=== PATIENT | female | born 2000 | race Two or more races ===

== ENCOUNTER 2022-10-17 14:01 | Outpatient (CLI) | payer OTHER ==
--- NOTE | 2022-10-17 20:50 | Ultrasound Report ---
PROCEDURE: OB F/U or Repeat INDICATIONS: UTERINE SIZE-DATE DISCREPANCY, DM OUTSIDE/PRIOR DATING DATA: Last menstrual period (LMP): 02/12/2022. LMP-based estimated date of delivery (JAMIL): Not calculated. First dating scan (date and location): 04/13/2022. Estimated date of delivery (JAMIL) from first dating scan: 11/19/2022. TECHNIQUE: Real-time scanning was performed of the fetus, with image documentation and biometric measurements. Endovaginal scanning: Not performed COMPARISON: None. FINDINGS: General: A single living intrauterine gestation is present. Presentation: Vertex Placenta: Placental position is anterior, without previa. Amniotic fluid index: 11.6 cm, 12% for gestational age. heart rate: 153 beats per minute. Maternal cervical canal: 4.6 cm long; normal length is 2.5 cm or more. biometrics: Biparietal diameter: 8.7 cm, 35 weeks and 2 days Head circumference: 31.9 cm, 35 weeks and 6 days Abdominal circumference: 33.7 cm, 37 weeks and 4 days Femur length: 6.7 cm, 34 weeks and 4 days Estimated gestational age from initial scan: 35 weeks and 2 days Composite gestational age from present scan: 35 weeks and 6 days Estimated weight and percentile: 2934 g which correlates with the 79th percentile Measurement variability in biometric dating: +/- 10 days from 12-20 weeks gestation, +/- 2 weeks from 20-30 weeks gestation, +/- 3 weeks at 30 weeks gestation or more. Other: Not applicable. IMPRESSION: Single living intrauterine gestation with estimated sonographic gestational age of appro ximately 35 weeks and 6 days. Normal interval growth has occurred. Estimated weight of approxim ately 2934 g which [address] the fetus within the 79th percentile. Reviewed by: Jose Azevedo MD on 10/17/2022 8:49 PM PDT Approved by: Jose Azevedo MD on 10/17/2022 8:49 PM PDT Station ID: [id number]
== END 2022-10-17 14:02 | disposition home or self-care (01) ==
LOC: DI 14:01
PROVIDERS: ATTEND Nurse Practitioner
DX: O24.913 Unspecified diabetes mellitus in pregnancy, third trimester (principal); O26.843 Uterine size-date discrepancy, third trimester; Z3A.35 35 weeks gestation of pregnancy

== ENCOUNTER 2022-10-17 19:15 | Outpatient (CLI) | payer OTHER ==
--- NOTE | 2022-10-17 17:35 | Ultrasound Report ---
PROCEDURE: OB Biophysical Profile INDICATIONS: INSULIN DEPENDENT DM OUTSIDE/PRIOR DATING DATA: Last menstrual period (LMP): 02/12/2022. LMP-based estimated date of delivery (JAMIL): Not calculated. First dating scan (date and location): 04/13/2022. Estimated date of delivery (JAMIL) from first dating scan: 11/19/2022. TECHNIQUE: Real-time scanning was performed of the fetus, with image documentation and biometric stephanie surements. Biophysical profile was also obtained. Endovaginal scanning: Not performed COMPARISON: None. FINDINGS: General: A single living intrauterine gestation is present. Presentation: Vertex Placenta: Placental position is anterior, without previa. Amniotic fluid index: 9.6 cm, 12th percentile for gestational age. heart rate: 153 beats per minute. Maternal cervical canal: 4.6 cm long; normal length is 2.5 cm or more. biometrics: Biparietal diameter: 8.7 cm, 35 weeks and 2 days Head circumference: 31.9 cm, 35 weeks and 6 days Abdominal circumference: 33.7 cm, 37 weeks and 4 days Femur length: 6.7 cm, 34 weeks and 4 days Estimated gestational age from initial scan: 35 weeks and 2 days. Composite gestational age from present scan: 35 weeks and 6 days Estimated weight and percentile: 2934 g, approximately the 79th percentile for gestational age Measurement variability in biometric dating: +/- 10 days from 12-20 weeks gestation, +/- 2 weeks from 20-30 weeks gestation, +/- 3 weeks at 30 weeks gestation or later. Biophysical profile: Tone: 2 points. Movement: 2 points. Respiration: 2 points. Largest pocket of fluid: 2 points. Umbilical artery Doppler: Cord Doppler S/D ratios measure 2.3 at the abdominal insertion, 1.84 at mi d cord, and 2.61 at the placental insertion. Normal cord Doppler waveforms. IMPRESSION: Single living intrauterine gestation with estimated sonographic gestational age of approximately 35 w eeks and 6 days. Normal interval growth has occurred. Estimated weight measures approximately 2 934 g which correlates with the 79th percentile for gestational age. Biophysical profile score of 8 out of 8. Normal cord Doppler S/D ratios and Doppler waveforms. Reviewed by: Jose Jang MD on 10/17/2022 5:34 PM PDT Approved by: Jose Jang MD on 10/17/2022 5:34 PM PDT Station ID: [id number]
== END 2022-10-17 23:59 | disposition home or self-care (01) ==
LOC: DI 19:15
PROVIDERS: ATTEND Nurse Practitioner
DX: O24.410 Gestational diabetes mellitus in pregnancy, diet controlled (principal); O26.843 Uterine size-date discrepancy, third trimester; Z3A.35 35 weeks gestation of pregnancy

== ENCOUNTER 2022-10-19 08:00 | Outpatient (CLI) | payer OTHER | END 2022-10-19 23:59 | disposition home or self-care (01) | LOC: LAB.R 08:00 | PROVIDERS: ATTEND Obstetrics & Gynecology | DX: Z36.85 Encounter for antenatal screening for Streptococcus B (principal) | CPT/HCPCS: 87797 ==

== ENCOUNTER 2022-10-19 08:09 | Outpatient (CLI) | payer OTHER ==
[2022-10-19 08:35] VITALS: BP 118/79
--- NOTE | 2022-10-19 10:00 | PROCEDURE REPORT ---
- HPI Current EDU 11/16/22 Gestation 36 Weeks and 0 Days 2 Para 0 Vital Signs Temperature 98.1 F 10/19/22 08:20 Heart Rate 84 10/19/22 08:20 Respiratory Rate 14 10/19/22 08:20 Blood Pressure 118/79 10/19/22 08:20 Temperature 98.1 F 10/19/22 08:20 Heart Rate 84 10/19/22 08:20 Respiratory Rate 14 10/19/22 08:20 Blood Pressure 118/79 10/19/22 08:20 O2 Saturation If not protocol: Oxygen Flow, liters/minute - NST Procedure NST Procedure Start Date 10/19/22 Start Time 08:43 Patient States Movement Yes - Results and Plan Plan: Patient is a 22-year-old G2, P0 at 36 weeks gestation here for scheduled NST. NST Performed 10/19/2022 NST Read 10/19/2022 FHT: 135 bpm baseline, moderate variability, accelerations present, no decelerations. Reactive NST [place]: Irregular Diagnosis 36 weeks gestation Gestational diabetes Continue with twice weekly NST.
== END 2022-10-19 09:15 | disposition home or self-care (01) ==
LOC: WFO 08:09 → FBP 08:13 → WFO 09:15
PROVIDERS: ATTEND Obstetrics & Gynecology
DX: O24.414 Gestational diabetes mellitus in pregnancy, insulin controlled (principal); Z36.85 Encounter for antenatal screening for Streptococcus B; Z3A.36 36 weeks gestation of pregnancy
CPT/HCPCS: 59025; 87797

== ENCOUNTER 2022-10-23 17:34 | Outpatient (CLI) | payer OTHER ==
--- NOTE | 2022-10-24 10:18 | Ultrasound Report ---
PROCEDURE: OB Biophysical Profile INDICATIONS: INSULIN DEPENDENT DM OUTSIDE/PRIOR DATING DATA: Last menstrual period (LMP): 02/12/2022. LMP-based estimated date of delivery (JAMIL): Not applicable First dating scan (date and location): 04/13/2022. Estimated date of delivery (JAMIL) from first dating scan: 11/19/2022. TECHNIQUE: Real-time scanning was performed of the fetus, with image documentation and biometric stephanie surements. Biophysical profile was also obtained. Endovaginal scanning: No COMPARISON: 10/17/2022 FINDINGS: General: A single living intrauterine gestation is present. Presentation: Cephalic Placenta: Placental position is anterior, without previa. Amniotic fluid index: 13.6 cm, within normal limits for gestational age. heart rate: 147 beats per minute. Maternal cervical canal: Not imaged Estimated gestational age from initial scan: 36 weeks 1 day Measurement variability in biometric dating: +/- 10 days from 12-20 weeks gestation, +/- 2 weeks from 20-30 weeks gestation, +/- 3 weeks at 30 weeks gestation or later. Biophysical profile: Tone: 2 points. Movement: 2 points. Respiration: 2 points. Largest pocket of fluid: 2 points. Umbilical artery Doppler: 2.3, 2.4, 2.0 Limited evaluation of anatomy demonstrates normal chest/diaphragm, stomach/abdomen, bilateral r enal regions, and urinary bladder/pelvis. Nuchal cord is present. IMPRESSION: 1. Single living intrauterine gestation. 2. Nuchal cord neck sign 3. Normal biophysical profile score. Reviewed by: Chasity Savage MD on 10/24/2022 10:16 AM PDT Approved by: Chasity Savage MD on 10/24/2022 10:16 AM PDT Station ID: [id number]
== END 2022-10-23 17:35 | disposition home or self-care (01) ==
LOC: DI 17:34
PROVIDERS: ATTEND Nurse Practitioner
DX: O24.414 Gestational diabetes mellitus in pregnancy, insulin controlled (principal); Z3A.36 36 weeks gestation of pregnancy

== ENCOUNTER 2022-10-23 17:35 | Outpatient (CLI) | payer OTHER ==
[2022-10-23 17:51] VITALS: BP 129/84
--- NOTE | 2022-10-23 23:00 | PROCEDURE REPORT ---
- HPI Diagnosis/Indication for NST: Gestational Diabetes Current EDU 11/16/22 Gestation 36 Weeks and 4 Days 2 Para 0 Vital Signs Temperature 98.4 F 10/23/22 17:41 Heart Rate 96 10/23/22 17:41 Respiratory Rate 20 10/23/22 17:41 Blood Pressure 129/84 H 10/23/22 17:41 Temperature 98.4 F 10/23/22 17:41 Heart Rate 96 10/23/22 17:41 Respiratory Rate 20 10/23/22 17:41 Blood Pressure 129/84 H 10/23/22 17:41 O2 Saturation If not protocol: Oxygen Flow, liters/minute - NST Procedure NST Procedure Start Date 10/23/22 Start Time 17:43 Stop Time 18:08 Vibroacoustic Stimulation Used No Patient States Movement Yes - Results and Plan Plan: Patient is a 22-year-old G2, P0 at 36 weeks 4 days gestation here for scheduled NST. NST Performed 10/23/2022 NST Read 10/23/2022 FHT: 145 bpm baseline, moderate variability, accelerations present, no decelerations. Reactive NST [place]: Irritable Diagnosis 36 weeks gestation Gestational diabetes Continue with twice-weekly NST.
== END 2022-10-23 18:15 | disposition home or self-care (01) ==
LOC: WFO 17:35 → FBP 17:37 → WFO 18:15
PROVIDERS: ATTEND Obstetrics & Gynecology
DX: O24.414 Gestational diabetes mellitus in pregnancy, insulin controlled (principal); Z3A.36 36 weeks gestation of pregnancy
CPT/HCPCS: 59025; 99213

== ENCOUNTER 2022-10-26 08:39 | Outpatient (CLI) | payer OTHER ==
--- NOTE | 2022-10-26 09:19 | PROCEDURE REPORT ---
- HPI Vital Signs Temperature 97.9 F 10/26/22 08:51 Heart Rate 94 10/26/22 08:51 Respiratory Rate 16 10/26/22 08:51 Blood Pressure 127/94 H 10/26/22 08:51 Temperature 97.9 F 10/26/22 08:51 Heart Rate 94 10/26/22 08:51 Respiratory Rate 16 10/26/22 08:51 Blood Pressure 127/94 H 10/26/22 08:51 O2 Saturation If not protocol: Oxygen Flow, liters/minute - NST Procedure NST Procedure Start Time 17:43 Stop Time 18:08 - Results and Plan Plan: Patient is a 22-year-old G2, P0 at 37 weeks 0 days gestation here for scheduled NST. NST Performed for 10/26/2022 NST Read 10/26/2022 FHT: 130 bpm baseline, moderate variability, accelerations present, no decelerations. Reactive NST [place]: 2 to 5 minutes Diagnosis 37 weeks gestation Gestational diabetes Declined cervical exam Continue with twice weekly NST.
[2022-10-26 10:16] VITALS: BP 134/82
== END 2022-10-26 09:40 | disposition home or self-care (01) ==
LOC: WFO 08:39 → FBP 08:42 → WFO 09:40
PROVIDERS: ATTEND Obstetrics & Gynecology
DX: O24.414 Gestational diabetes mellitus in pregnancy, insulin controlled (principal); Z3A.37 37 weeks gestation of pregnancy
CPT/HCPCS: 36415; 59025; 80053; 82570; 84156; 85027

== ENCOUNTER 2022-10-26 10:24 | Outpatient (CLI) | payer OTHER ==
[2022-10-26 10:33] LABS: HCT - HEMATOCRIT 31.7 % (37.0-47.0); HGB - HEMOGLOBIN 10.5 g/dL (12.0-16.0); MEAN CORPUSCULAR HEMOGLOBIN 29.3 pg (27.0-31.0); MEAN CORPUSCULAR HGB CONC 33.1 g/dL (32.0-36.0); MEAN CORPUSCULAR VOLUME 88.5 fL (81.0-99.0); MEAN PLATELET VOLUME 10.6 fL (7.9-10.8); RED BLOOD COUNT 3.58 10^6/uL (4.20-5.40); WHITE BLOOD COUNT 13.3 x10^3/uL (4.8-10.8)
[2022-10-26 10:45] LABS: ALBUMIN 3.3 g/dL (3.2-5.5); ALBUMIN/GLOBULIN RATIO 0.8 (1.0-2.2); BILIRUBIN,TOTAL 0.5 mg/dL (0.2-1.0); CALCIUM 8.9 mg/dL (8.5-10.3); CREATININE 0.4 mg/dL (0.4-1.0); POTASSIUM 3.8 mmol/L (3.5-5.0); TOTAL PROTEIN 7.3 g/dL (6.7-8.2)
[2022-10-26 10:58] LABS: CREATININE,URINE 109.7 mg/dL; PROTEIN/CREATININE RATIO,URINE 0.2 (<=0.2)
== END 2022-10-26 10:25 | disposition home or self-care (01) ==
LOC: LAB 10:24
PROVIDERS: ATTEND Obstetrics & Gynecology
DX: R03.0 Elevated blood-pressure reading, without diagnosis of hypertension (principal)
CPT/HCPCS: 36415; 80053; 82570; 84156; 85027

== ENCOUNTER 2022-10-30 17:46 | Outpatient (CLI) | payer OTHER ==
[2022-10-30 18:02] VITALS: BP 130/83
--- NOTE | 2022-10-31 12:30 | PROCEDURE REPORT ---
- HPI Diagnosis/Indication for NST: Gestational Diabetes Current EDU 11/16/22 Gestation 37 Weeks and 4 Days 2 Para 0 Vital Signs Temperature 97.9 F 10/30/22 17:57 Heart Rate 105 H 10/30/22 17:57 Respiratory Rate 17 10/30/22 17:57 Blood Pressure 130/83 H 10/30/22 17:57 O2 Saturation 100 10/30/22 17:57 Temperature 98.4 F 10/30/22 18:15 Heart Rate 105 H 10/30/22 17:57 Respiratory Rate 17 10/30/22 17:57 Blood Pressure 130/83 H 10/30/22 17:57 O2 Saturation 100 10/30/22 17:57 If not protocol: Oxygen Flow, liters/minute - NST Procedure NST Procedure Start Date 10/30/22 Start Time 17:52 Stop Time 18:40 Vibroacoustic Stimulation Used No Patient States Movement Yes 140, moderate variability, +accels, no decels Reactive NST 37+4 weeks
== END 2022-10-30 18:45 | disposition home or self-care (01) ==
LOC: WFO 17:46 → FBP 17:47 → WFO 18:45
PROVIDERS: ATTEND Obstetrics & Gynecology Obstetrics
DX: O24.414 Gestational diabetes mellitus in pregnancy, insulin controlled (principal); Z3A.37 37 weeks gestation of pregnancy
CPT/HCPCS: 59025

== ENCOUNTER 2022-10-30 18:48 | Outpatient (CLI) | payer OTHER ==
--- NOTE | 2022-10-31 12:09 | Ultrasound Report ---
PROCEDURE: OB Biophysical Profile INDICATIONS: INSULIN DEPENDENT DM OUTSIDE/PRIOR DATING DATA: Last menstrual period (LMP): 02/12/2022. LMP-based estimated date of delivery (JAMIL): 11/19/2022. First dating scan (date and location): 04/13/2022. Estimated date of delivery (JAMIL) from first dating scan: 11/19/2022. The below data below was generated using the ultrasound JAMIL of 11/19/2022 TECHNIQUE: Real-time scanning was performed of the fetus, with image documentation and biometric stephanie surements. Biophysical profile was also obtained. Endovaginal scanning: Not performed COMPARISON: None. FINDINGS: General: A single living intrauterine gestation is present. Presentation: Cephalic Placenta: Placental position is anterior, without previa. Amniotic fluid index: 10.5 cm, normal for gestational age. heart rate: 166 beats per minute. Maternal cervical canal: Not visualized. Biophysical profile: Tone: 2 points. Movement: 2 points. Respiration: 2 points. Largest pocket of fluid: 2 points. Umbilical artery Doppler: Normal waveforms. SD ratio measures 3.6. IMPRESSION: Single living intrauterine at 37 weeks 1 day, JAMIL of 11/19/2022. BPP 8 of 8. Normal umbilical artery waveform. Reviewed by: Gal Corrales on 10/31/2022 12:08 PM PDT Approved by: Gal Corrales on 10/31/2022 12:08 PM PDT Station ID: [id number]
== END 2022-10-30 18:49 | disposition home or self-care (01) ==
LOC: DI 18:48
PROVIDERS: ATTEND Nurse Practitioner
DX: O24.414 Gestational diabetes mellitus in pregnancy, insulin controlled (principal); Z3A.37 37 weeks gestation of pregnancy

== ENCOUNTER 2022-11-02 17:24 | Inpatient (IN) | payer OTHER ==
[2022-11-02] MEDS ORDERED: SODIUM CHLORIDE FLUSH 0.9% 10 ML SYRINGE IVP PRN (18:03)
[2022-11-02] MEDS ORDERED: OXYTOCIN 10 UNIT/ML VIAL IM PRN (18:03)
[2022-11-02] MEDS ORDERED: hydrALAZINE INJ 20 MG/ML VIAL IVP PRN ×2 (18:03)
[2022-11-02] MEDS ORDERED: miSOPROStoL 200 MCG TABLET PR PRN (18:03)
[2022-11-02] MEDS ORDERED: TERBUTALINE 1 MG/ML VIAL SUBQ PRN (18:03)
[2022-11-02] MEDS ORDERED: fentaNYL 100 MCG/2 ML VIAL IVP PRN (18:03)
[2022-11-02] MEDS ORDERED: CARBOPROST TROMETHAMINE 250 MCG/ML AMP IM PRN (18:03)
[2022-11-02] MEDS ORDERED: TRANEXAMIC ACID IN NACL 1,000 MG/100 ML BAG IV PRN (18:03)
[2022-11-02] MEDS ORDERED: OXYTOCIN/SODIUM CHLORIDE 500 ML IV PRN (18:03)
[2022-11-02] MEDS ORDERED: NIFEdipine 10 MG CAPSULE PO PRN (18:03)
[2022-11-02] MEDS ORDERED: lidocaine 1% 20 ML MDV ID PRN (18:03)
[2022-11-02] MEDS ORDERED: miSOPROStoL 200 MCG TABLET BC PRN (18:03)
[2022-11-02] MEDS ORDERED: METHYLERGONOVINE 0.2 MG/ML VIAL IM PRN (18:03)
[2022-11-02] MEDS ORDERED: LACTATED RINGERS 500 ML IV ONE (18:03)
[2022-11-02] MEDS ORDERED: LABETALOL 20 MG/4 ML SYRINGE IVP PRN ×3 (18:03)
[2022-11-02 18:14] LABS: BASOPHILS # (AUTO) 0.1 10^3/uL (0.0-0.1); BASOPHILS % (AUTO) 0.5 %; EOSINOPHILS # (AUTO) 0.3 10^3/uL (0.0-0.7); EOSINOPHILS % (AUTO) 2.4 %; HCT - HEMATOCRIT 30.3 % (37.0-47.0); LYMPHOCYTES # (AUTO) 1.4 10^3/uL (1.5-3.5); LYMPHOCYTES % (AUTO) 12.4 %; MEAN CORPUSCULAR HEMOGLOBIN 28.8 pg (27.0-31.0); MEAN CORPUSCULAR VOLUME 87.3 fL (81.0-99.0); MEAN PLATELET VOLUME 11.1 fL (7.9-10.8); MONOCYTES # (AUTO) 1.3 10^3/uL (0.0-1.0); MONOCYTES % (AUTO) 11.7 %; NEUTROPHILS # (AUTO) 8.1 10^3/uL (1.5-6.6); NEUTROPHILS % (AUTO) 72.4 %; PLT - PLATELET COUNT 356 10^3/uL (130-450); RED BLOOD COUNT 3.47 10^6/uL (4.20-5.40); RED CELL DISTRIBUTION WIDTH 13.2 % (12.0-15.0); WHITE BLOOD COUNT 11.2 x10^3/uL (4.8-10.8)
--- NOTE | 2022-11-02 18:23 | HISTORY & PHYSICAL EXAMINATION ---
Admit History - Complications This : positive: Gestational diabetes, induced HTN - Mother's Labs Mother's Blood Type: positive: B Mother's RH: positive: Positive GBS: positive: Group B Step Negative Rubella Status: positive: Immune - Other Maternal History Other Maternal History: HPI: 22-year-old -0-1-0 at 38 weeks 0 days gestation admitted for induction of labor secondary to gestational hypertension. She has good movement. Denies loss of fluid. No MATTA/BV or RUQP. No vaginal bleeding. Denies nausea and v omiting. Denies urinary urgency or dysuria. All other symptoms reviewed and were negative except per HPI. Course LMP: 02/09/2022 JAMIL by LMP: 11/16/2022 US:04/13/2022 @ 8w4d (11/19/2022 by US) Final JAMIL: 11/16/2022 A2GDM: Start insulin, 10 units at night. Overall blood sugars are well controlled. NST/BPP's are scheduled. EFW 10/17/2022 shows weight of 2934 g, 79th percentile. Gestational hypertension: Elevated again in clinic today. Will send to labor and delivery for induction. Pre- Weight: 155 BMI: 27.56 Blood type: B positive Antibody Screen: negative CBC: PLT-386 HCT-37.7 HGB -12.6 RUB: immune VZV: non-immune HBsAg: negative HepC: negative RPR/AB-EIA: non-reactive HIV: negative Flu: no Covid: rcv'd 1 out of 2 of first set PAP: never, too young GC/CT: negative HSV: denies self and partner Genetic testing: HARMONY negative, it's a boy! FAS: done, normal per pt 06/22/2022 Placenta:ANTERIOR, Grade2 Cord:3VC CRESENCIO:normal EFW:2719g 72nd%ile 50gm OGCT: 153 3HR GTT: 99 238, 161, 53 TDAP: 08/24/2022 Breast Pump: has one 2nd Antibody screen: 3rd trimester 10/26/22: 10.5/33.1 PLT- 349 3rd trimester HIV GBS:Negative Delivery plan:Plan for 39-week induction. Contraception: PMH Denies significant history PSH Scoliosis surgery OB History -0-1-0 1. 2020: EAB 2. Current SH Denies tobacco, alcohol, drugs Family History Noncontributory Allergies No known drug allergies Medications Lantus: 10 units Aspirin 81 mg Physical exam: General: Alert, oriented, no acute distress Head: Normal cephalic atraumatic Eyes: PERRLA, extraocular motions intact. Respiratory: Normal rate of respiration. No accessory muscle use, normal respiratory effort. Cardiovascular: Regular rate and rhythm Abdomen: Gravid, nontender, nondistended Extremities: Normal range of motion Neuro: Oriented x3. Normal movements Psych: Appropriate mood and affect. Normal judgment and insight SVE: 0/0/-3 FHT: 130 beats minute baseline, moderate variability, accelerations present, no decelerations. [place]: Occasional Plan 22-year-old -0-1-0 at 30 weeks 0 days gestation admitted for induction of labor secondary to gestational hypertension at term 1. Gestational hypertension -Plan to admit for cervical ripening. Start with misoprostol 25 mcg PV -Epidural at patient's request -Admit labs 2. 38 weeks gestation 3. Gestational diabetes -We will give evening dose of Lantus as she is eating normally and not in labor -Plan for every 4 hour glucose checks until active labor 4. History of scoliosis surgery -Plan is discussed with anesthesia Meds/Allgy - Home Medications Home Medications: Ambulatory Orders Medication Instructions Recorded Confirmed Aspirin EC [Ecotrin] 81 mg PO DAILY 10/12/22 10/12/22 Insulin Glargine [Lantus Solostar] 10 units SUBQ HS 10/12/22 10/12/22 - Allergies Allergies/Adverse Reactions: Allergies Allergy/AdvReac Type Severity Reaction Status Date / Time No Known Drug Allergies Allergy Verified 10/12/22 15:33
[2022-11-02 18:31] LABS: ALBUMIN 3.2 g/dL (3.2-5.5); ALBUMIN/GLOBULIN RATIO 0.9 (1.0-2.2); BILIRUBIN,TOTAL 0.5 mg/dL (0.2-1.0); CALCIUM 8.7 mg/dL (8.5-10.3); CREATININE 0.5 mg/dL (0.4-1.0); POTASSIUM 3.6 mmol/L (3.5-5.0); TOTAL PROTEIN 6.7 g/dL (6.7-8.2)
[2022-11-02 18:34] LABS: CREATININE,URINE 154.6 mg/dL; PROTEIN/CREATININE RATIO,URINE 0.7 (<=0.2)
[2022-11-02] MEDS ORDERED: DEXTROSE 40% GEL 37.5 GM TUBE PO ONE (18:42)
--- NOTE | 2022-11-02 19:22 | CONSULTATION NOTE ---
Consultation Report: pt presents to OB for labor induction. pt has history of Hernandez rods placed in 2012. No records available, and all care done at outside facility. US used to locate placement of hardware. By US imaging rods appear to end at L3- L4 with scarring from approx T1-L5. Lower spine curves to the right at L4-L5, but able to palpate vertebral space. Pt educated at great length about epidural placement, known risks, as well as increased risk of complications and failure rate in patients with Hernandez rods. Pt verbalizes understanding. All questions answered. Informed consent obtained.
[2022-11-02] MEDS: LACTATED RINGERS 1,000 ML IV SCH (19:36)
[2022-11-02] MEDS: SODIUM CHLORIDE FLUSH 0.9% 10 ML SYRINGE IVP SCH (19:36)
[2022-11-02] MEDS: miSOPROStoL 100 MCG TABLET VG SCH ×2 (19:49→23:55)
[2022-11-02] MEDS ORDERED: INSULIN GLARGINE-YFGN 300 UNIT/3 ML PEN SUBQ SCH (21:00)
--- NOTE | 2022-11-02 23:35 | PROVIDER PROGRESS NOTE ---
Labor Progress Note - Uterine Monitoring Uterine Monitoring Mode: positive: External toco Contraction Frequency (min/apart): Irregular Contraction Intensity: positive: Moderate Uterine Resting Tone: positive: Soft - Monitoring Monitor Mode: positive: External ultrasound Heart Rate Baseline: 135 Heart Rate Variability: positive: Moderate (6-25 bmp) Accelerations: positive: Present, 15x15 Decelerations: positive: None Strip Review: positive: Category I - Labor Progress Note Labor Progress Note/Additional Text: Continue with misoprostol for cervical ripening. Category 1 tracing. Patient tolerating well.
[2022-11-03] MEDS: miSOPROStoL 100 MCG TABLET VG SCH ×3 (02:46→06:26)
[2022-11-03] MEDS: LACTATED RINGERS 1,000 ML IV SCH ×2 (02:47→10:15)
--- NOTE | 2022-11-03 04:21 | PROVIDER PROGRESS NOTE ---
Labor Progress Note - Uterine Monitoring Uterine Monitoring Mode: positive: External toco Contraction Frequency (min/apart): 2-3 Contraction Intensity: positive: Moderate Uterine Resting Tone: positive: Soft - Monitoring Monitor Mode: positive: External ultrasound Heart Rate Baseline: 135 Heart Rate Variability: positive: Moderate (6-25 bmp) Accelerations: positive: Present, 15x15 Decelerations: positive: None Strip Review: positive: Category I - Vaginal Exam Dilation (in cm): 3 Effacement (%): 60 Station: -2 - Labor Progress Note Labor Progress Note/Additional Text: Patient feeling moderate contractions. Delbert every 2 to 3 minutes. Has been sensitive to misoprostol and contracts frequently. Plan to start oxytocin when able. Head still ballotable. Will defer amniotomy at this time.
[2022-11-03] MEDS: SODIUM CHLORIDE FLUSH 0.9% 10 ML SYRINGE IVP SCH (06:24)
[2022-11-03] MEDS ORDERED: ROPIVACAINE 0.2% 200 MG/100 ML BAG EP ONE (09:55)
[2022-11-03] MEDS ORDERED: ONDANSETRON 4 MG/2 ML VIAL IVP PRN (10:02)
[2022-11-03] MEDS ORDERED: fentaNYL 100 MCG/2 ML VIAL ONE (10:30)
[2022-11-03] MEDS ORDERED: SODIUM CHLORIDE 0.9% 10 ML VIAL IVP ONE (10:30)
--- NOTE | 2022-11-03 10:36 | ANESTHESIA ---
Pre-Anesthesia VS, & Labs - Diagnosis active labor - Procedure vaginal delivery Vital Signs: Temp Pulse Resp BP Pulse Ox O2 Flow Rate 36.9 C 115 H 16 111/79 11/02/22 18:19 11/02/22 18:19 11/02/22 18:19 11/02/22 18:19 Height: 5 ft 3 in Weight (kg): 95.254 kg Body Mass Index: 37.2 BMI Classification: Obese - NPO Last Fluid Intake: clear liquids - Is Patient ?: Yes - Lab Results Current Lab Results: Laboratory Tests 11/03/22 05:25: POC Whole Bld Glucose 89 11/03/22 01:29: POC Whole Bld Glucose 115 H 11/02/22 21:22: POC Whole Bld Glucose 91 11/02/22 18:33: Blood Type B POSITIVE, Antibody Screen NEGATIVE 11/02/22 17:40: Blood Type Recheck B POSITIVE 11/02/22 17:40: Sodium 136, Potassium 3.6, Chloride 108, Carbon Dioxide 22, Anion Gap 6.0, BUN 9, Creatinine 0.5, Estimated GFR (MDRD) 157, Glucose 98, Calcium 8.7, Total Bilirubin 0.5, AST 16, ALT 11, Alkaline Phosphatase 129 H, Total Protein 6.7, Albumin 3.2, Globulin 3.5, Albumin/Globulin Ratio 0.9 L 11/02/22 17:40: WBC 11.2 H, RBC 3.47 L, Hgb 10.0 L, Hct 30.3 L, MCV 87.3, MCH 28.8, MCHC 33.0, RDW 13.2, Plt Count 356, MPV 11.1 H, Neut # (Auto) 8.1 H, Lymph # (Auto) 1.4 L, [place] # (Auto) 1.3 H, Eos # (Auto) 0.3, Baso # (Auto) 0.1, Absolute Nucleated RBC 0.00, Nucleated RBC % 0.0 Lab results reviewed: Yes Fish Bones: 11/02/22 17:40 11/02/22 17:40 Home Medications and Allergies Active Medications Carboprost Tromethamine (Carboprost Tromethamine 250 Mcg/Ml Amp) 250 mcg IM .ONCE PRN PRN Reason: Hemorrhage Fentanyl (Fentanyl 100 Mcg/2 Ml Vial) 50 mcg IVP Q1H PRN PRN Reason: Severe Pain (score 7-10) Hydralazine HCl (Hydralazine Inj 20 Mg/Ml Vial) 5 - 10 mg IVP Q20M PRN; Protocol PRN Reason: SBP> or= 160 OR DBP> or= 110 Hydralazine HCl (Hydralazine Inj 20 Mg/Ml Vial) 10 mg IVP .ONCE PRN; Protocol PRN Reason: SBP> or= 160 OR DBP> or= 110 Oxytocin/Sodium Chloride (Pitocin/Sodium Chloride) 500 mls @ 999 mls/hr IV PRN PRN; Protocol PRN Reason: POST- HEMORR PREVENTION Tranexamic Acid (Tranexamic 1,000 Mg/100ml-Nacl) 1,000 mg in 100 mls @ 600 mls/hr IV Q30M PRN PRN Reason: EBL >1200mL and within 3hr Lactated Ringer's (Lr) 1,000 mls @ 125 mls/hr IV .Q8H [facility] Last Admin: 11/03/22 10:15 Dose: 125 mls/hr Insulin Glargine-yfgn (Insulin Glargine-Yfgn 300 Unit/3 Ml Pen) 10 unit SUBQ QPM [facility] Last Admin: 11/02/22 21:24 Dose: 10 unit Labetalol HCl (Labetalol 20 Mg/4 Ml Syringe) 20 - 80 mg IVP Q10M PRN; Protocol PRN Reason: SBP> or= 160 OR DBP> or= 110 Labetalol HCl (Labetalol 20 Mg/4 Ml Syringe) 20 mg IVP .ONCE PRN; Protocol PRN Reason: SBP> or= 160 OR DBP> or= 110 Labetalol HCl (Labetalol 20 Mg/4 Ml Syringe) 20 - 40 mg IVP Q10M PRN; Protocol PRN Reason: SBP> or= 160 OR DBP> or= 110 Lidocaine HCl (Lidocaine 1% 20 Ml Mdv) 20 ml ID .ONCE PRN PRN Reason: PERINEAL REPAIR Stop: 11/05/22 18:03 Methylergonovine Maleate (Methylergonovine 0.2 Mg/Ml Vial) 0.2 mg IM .ONCE PRN PRN Reason: Hemorrhage Misoprostol (Misoprostol 200 Mcg Tablet) 600 mcg BC .ONCE PRN PRN Reason: Hemorrhage Misoprostol (Misoprostol 200 Mcg Tablet) 800 mcg AR .ONCE PRN PRN Reason: Hemorrhage Misoprostol (Misoprostol 100 Mcg Tablet) 25 mcg VG Q4H [facility] Last Admin: 11/03/22 06:26 Dose: Not Given Nifedipine (Nifedipine 10 Mg Capsule) 10 - 20 mg PO Q20M PRN; Protocol PRN Reason: SBP> or= 160 OR DBP> or= 110 Ondansetron HCl (Ondansetron 4 Mg/2 Ml Vial) 4 mg IVP Q6HR PRN PRN Reason: Nausea / Vomiting Last Admin: 11/03/22 10:15 Dose: 4 mg Oxytocin (Oxytocin 10 Unit/Ml Vial) 10 unit IM .ONCE PRN PRN Reason: Step One if no IV access. Sodium Chloride (Sodium Chloride Flush 0.9% 10 Ml Syringe) 10 ml IVP PRN PRN PRN Reason: NEEDED PER PROVIDER ORDERS Sodium Chloride (Sodium Chloride Flush 0.9% 10 Ml Syringe) 10 ml IVP Q8H [facility] Last Admin: 11/03/22 06:24 Dose: Not Given Terbutaline Sulfate (Terbutaline 1 Mg/Ml Vial) 0.25 mg SUBQ .ONCE PRN PRN Reason: Tachystole Aspirin EC [Ecotrin] 81 mg PO DAILY 10/12/22 Insulin Glargine [Lantus Solostar] 10 units SUBQ HS 10/12/22 Allergies/Adverse Reactions: Allergies Allergy/AdvReac Type Severity Reaction Status Date / Time No Known Drug Allergies Allergy Verified 10/12/22 15:33 Anes History & Medical History - Anesthetic History Anesthesia Complications: reports: No previous complications - Medical History Cardiovascular: reports: Hypertension (gestational hypertension) Pulmonary: reports: None Gastrointestinal: reports: None Urinary: reports: None Neuro: reports: None Musculoskeletal: reports: Scoliosis (s/p curry franco placement) Endocrine/Autoimmune: reports: Other (GDM) Smoking Status: Never smoker Psychosocial: reports: No issues indicated History of Cancer?: No - Surgical History Orthopedic: reports: Spine surgery - Obstetrical History : 1 Parity: 0 Complications: reports: Gestational diabetes, induced HTN Exam General: Alert, Oriented x3, Cooperative, No acute distress Dental: WNL Mouth Openin Fingerbreadth Neck Mobility: Normal Mallampati classification: II Thyromental Distance: 4-6 cm Mental/Cognitive Status: Alert/Oriented X3, Normal for patient Plan Anesthesia Type: Epidural Consent for Procedure(s) Verified and Reviewed: Yes Code Status: Attempt Resuscitation ASA classification: 2-Mild systemic disease Is this case an emergency?: No
[2022-11-03] MEDS ORDERED: ROPIVACAINE 0.2% 200 MG/100 ML BAG EP PRN (10:38)
[2022-11-03] MEDS ORDERED: NALOXONE 0.4 MG/ML VIAL IVP PRN ×2 (10:38→17:07)
[2022-11-03] MEDS ORDERED: OXYTOCIN/SODIUM CHLORIDE 500 ML IV SCH (13:00)
[2022-11-03] MEDS ORDERED: ACETAMINOPHEN 500 MG TABLET PO PRN (15:54)
[2022-11-03] MEDS ORDERED: CALCIUM CARBONATE CHEW 500 MG TABLET PO PRN (17:07)
[2022-11-03] MEDS ORDERED: SIMETHICONE CHEW 80 MG TABLET PO PRN (17:07)
[2022-11-03] MEDS ORDERED: LABETALOL 20 MG/4 ML SYRINGE IVP PRN ×3 (17:07)
[2022-11-03] MEDS ORDERED: NIFEdipine 10 MG CAPSULE PO PRN (17:07)
[2022-11-03] MEDS ORDERED: HYDROCORTISONE 1% CREAM 28 GM TUBE TOP PRN (17:07)
[2022-11-03] MEDS ORDERED: hydrALAZINE INJ 20 MG/ML VIAL IVP PRN ×2 (17:07)
[2022-11-03] MEDS ORDERED: WITCH HAZEL/GLYCERIN 1 PAD TOP PRN (17:07)
[2022-11-03] MEDS ORDERED: OXYTOCIN/SODIUM CHLORIDE 500 ML IV PRN (17:07)
--- NOTE | 2022-11-03 17:20 | DELIVERY NOTE ---
Delivery Note - Infant Delivery Method Infant Delivery Method: positive: Spontaneous vaginal delivery - Cervical Ripening Method Cervical Ripening Method: positive: Misoprostil - Presentation Presentation: positive: Vertex, MAUIRLIO - left occiput anterior - Nuchal Cord Nuchal Cord: positive: Present (x1, reduced) - Anesthetic Anesthetic Type: - Amniotic Fluid Description Amniotic Fluid Description: positive: Clear - Episiotomy Type Episiotomy Type: positive: None - Laceration Laceration: positive: 2nd degree (left vaginal) - Suture Suture Type: positive: Vicryl Suture Size: positive: 3-0 - Delivery Outcome Delivery Outcome: positive: Livebirth - [place] : positive: Placed in direct skin contact with mother, Bulb syringe, Stimulated, Warmed, [place] used sex: positive: Male - Cord Cord: positive: 3 vessels - Placenta Placenta: positive: Intact, Spontaneous - Estimated Blood Loss Estimated Blood Loss (in cc): 250 - Delivery Comments (Free Text/Narrative) Delivery Comments (Free Text/Narrative): /+2. Head delivered, MAURILIO. Nuchal cord x1, reduced. Shoulders and body delivered with ease. placed on mother's abdomen. Delayed cord clamping. Fundus firm. Placenta delivered spontaneously and intact, 3vc. Vagina and perineum inspected- second degree left laceration repaired with 3-0 Vicryl. Hemostasis. QBL 250cc. Family bonding at bedside doing well.
[2022-11-03] MEDS: DOCUSATE SODIUM 100 MG CAPSULE PO SCH (20:47)
[2022-11-03] MEDS: IBUPROFEN 600 MG TABLET PO SCH (20:49)
[2022-11-03] MEDS: INSULIN GLARGINE-YFGN 300 UNIT/3 ML PEN SUBQ SCH (20:56)
[2022-11-04] MEDS: ACETAMINOPHEN 500 MG TABLET PO SCH ×3 (00:01→16:14)
[2022-11-04] MEDS: IBUPROFEN 600 MG TABLET PO SCH ×4 (02:41→20:46)
--- NOTE | 2022-11-04 07:50 | Discharge Plan ---
Discharge Plan Problem Reviewed?: Yes Disposition: Home, Self Care Condition: Stable Diet: Regular Activity Restrictions: No Restrictions Shower Restrictions: No Driving Restrictions: No No Smoking: If you smoke, Please STOP! Call for help. Follow-up with: Cristina Wilkerson DO [Provider Admit Priv/Credential] -
--- NOTE | 2022-11-04 07:50 | DISCHARGE SUMMARY ---
Discharge Summary Admit Date: 11/03/22 Discharge Date: 11/05/22 Discharging Provider: brittanie Code Status: Attempt Resuscitation Condition at Discharge: Stable Discharge Disposition: 01 Home, Self Care - ALLERGIES Allergies/Adverse Reactions: Allergies Allergy/AdvReac Type Severity Reaction Status Date / Time No Known Drug Allergies Allergy Verified 10/12/22 15:33 - MEDICATIONS Home Medications: Ambulatory Orders Medication Instructions Recorded Confirmed Aspirin EC [Ecotrin] 81 mg PO DAILY 10/12/22 10/12/22 Insulin Glargine [Lantus Solostar] 10 units SUBQ HS 10/12/22 10/12/22 - PHYSICAL EXAM AT DISCHARGE General Appearance: positive: No acute distress Abdomen: positive: Non-tender Extremities: positive: Non-tender - LABS Result Diagrams: 11/02/22 17:40 11/02/22 17:40 - QUALITY (Female Hip Fx Only) Was patient sent home on osteoporosis medication?: No - FOLLOW UP Follow Up: as scheduled with [facility]-approx 6 weeks may discontinue insulin at this time - TIME SPENT Time Spent in Discharge (Minutes): 25
--- NOTE | 2022-11-04 07:51 | PROVIDER PROGRESS NOTE ---
Subjective - Prog Note Date Prog Note Date: 11/04/22 Prog Note Time: 08:36 - Subjective Pt reports feeling: Improved (feeling well; minimal cramping) Objective - Vital Signs/Intake & Output Vital Signs: Vital Signs x48h Temp Pulse Resp BP Pulse Ox 11/04/22 05:15 98.2 F 64 20 114/78 98 11/04/22 00:05 98.8 F 80 20 108/74 99 Intake & Output: Intake & Output 11/01/22 11/02/22 11/03/22 11/04/22 23:59 23:59 23:59 23:59 Intake Total 240 2013.333 Output Total 1600 Balance 240 413.333 - Objective General Appearance: positive: No acute distress Respiratory: positive: No respiratory distress Abdomen: positive: Non-tender (fundus firm and non-tender) Extremities: positive: Non-tender (no calf tenderness) - Lab Results Fish Bones: 11/02/22 17:40 11/02/22 17:40 Other Labs: Lab Results x24hrs 11/04/22 11/03/22 11/03/22 Range/Units 06:00 18:16 13:40 POC Whole Bld Glucose 90 103 H 104 H (70 - 100) mg/dL Assessment/Plan - Problem List (1) Term delivered Impression: doing well PPD # 1; routine pp care; likely discharge to home tomorrow
[2022-11-04] MEDS: DOCUSATE SODIUM 100 MG CAPSULE PO SCH ×2 (08:35→20:46)
[2022-11-04] MEDS ORDERED: IBUPROFEN 600 MG TABLET PO SCH (18:00)
[2022-11-04] MEDS: INSULIN GLARGINE-YFGN 300 UNIT/3 ML PEN SUBQ SCH (21:06)
[2022-11-05] MEDS: ACETAMINOPHEN 500 MG TABLET PO SCH ×2 (00:06→10:06)
[2022-11-05] MEDS: IBUPROFEN 600 MG TABLET PO SCH ×2 (03:10→10:07)
[2022-11-05 08:59] VITALS: BP 122/86
[2022-11-05] MEDS: DOCUSATE SODIUM 100 MG CAPSULE PO SCH (10:07)
--- NOTE | 2022-11-05 14:04 | Labor Flowsheet ---
Labor Flowsheet Datetime Report Generated by CPN: 11/05/2022 14:04 Datetime: 11/05/2022 08:50 VITAL SIGNS NBP Sys/Nola/Mean (mmHg): 122 : 86 : 92 Pulse: 85 Datetime: 11/03/2022 17:00 Stage of : Datetime: 11/03/2022 16:55 Membranes Ruptured Date/Time: 11/03/2022 13:00 Datetime: 11/03/2022 16:30 SpO2 (%): 100 LaborFlag: Labor Datetime: 11/03/2022 16:07 STAGE 2 Pushing: Coached on Pushing Pushing Position: Pushing with Contractions; Pushing Lithotomy Pushing Progress: Descent with Pushing; Presenting Part Visible; Pushing Effectively with Contracti ons Datetime: 11/03/2022 16:01 VAGINAL EXAM Dilatation (cm): 10.0 Effacement (%): 100 Station: 0 Datetime: 11/03/2022 16:00 MEDICATIONS Analgesics/Sedatives: Tylenol (mg) @ 1000 COMMUNICATION Communication: RN at Bedside; Provider at Bedside Datetime: 11/03/2022 15:42 Patient Position/Activity: Left Tilt Patient Care Comments: With peanut ball Datetime: 11/03/2022 15:30 UTERINE ACTIVITY Monitor Mode: External Frequency (min): 2-4 Quality: Strong Duration (sec): 70-110 Pattern: Normal: <= 5 Contractions in 10 Minutes Resting Tone (Palpate): Relaxed ASSESSMENT A Monitor Mode: Telemetry FHR Baseline Changes: No Baseline Change Variability: Moderate 6-25 bpm Accelerations: 15X15 Decelerations: Variable Actions for Decelerations: Other Category: Category II Comments: Moved peanut ball to left side and tilted pt to left Datetime: 11/03/2022 15:00 FHR Baseline Rate : 120 Datetime: 11/03/2022 14:37 Temperature (C): 36.6 MATERNAL ASSESSMENT Headache: Frontal RUQ Epigastric Pain: Denies Datetime: 11/03/2022 13:42 Bedside Blood Glucose: 104 PAIN Pain Scale: 0 Datetime: 11/03/2022 13:00 Membrane Status: Ruptured Membranes Rupture Method: Spontaneous Amniotic Fluid Color: Clear Amniotic Fluid Amount: Moderate Amniotic Fluid Odor: None Nitrazine: Positive Datetime: 11/03/2022 12:00 Monitor Interventions for UA: [place] Adjusted Datetime: 11/03/2022 11:42 Vaginal Bleeding: Normal Show Cervix, Consistency: Soft Cervix, Position: Midposition Datetime: 11/03/2022 11:40 I/O Interventions: Lam Cath Inserted Datetime: 11/03/2022 11:17 Vital Sign Comments: BP Cuff changed to appropriate size. Datetime: 11/03/2022 10:18 Epidural Procedure Other: Delivery Dose Datetime: 11/03/2022 10:15 Antiemetics/Antacids: Zofran (mg) @ (Annotations: 4mg) Datetime: 11/03/2022 10:06 Epidural Procedure: Test Dose Datetime: 11/03/2022 10:00 Contraction Comments: Unable to adequately trace with TOCO. Contraction palpate moderately with rel axed resting tone. Datetime: 11/03/2022 09:55 ANESTHESIA Anesthesia Plans: Epidural Epidural Positioning: Sitting Datetime: 11/03/2022 09:45 Pain Coping: Requesting Pain Medication or Epidural Datetime: 11/03/2022 09:38 Exam by: Jonique Mark RN Datetime: 11/03/2022 09:30 Monitor Interventions for FHR: Ultrasound Adjusted Datetime: 11/03/2022 02:47 PATIENT CARE IV/Blood Work: IV Infusing per Order Datetime: 11/02/2022 23:58 Respirations: 16 Datetime: 11/02/2022 19:49 Cervical Ripening Agents: Cytotec @
== END 2022-11-05 13:30 | disposition home or self-care (01) | DRG 807 ==
LOC: WFO 17:24 → FBP 17:26 → WFO 20:20 → OBSVTOIN 11-03 10:00
PROVIDERS: ADMIT Obstetrics & Gynecology; ATTEND Obstetrics & Gynecology
PROC: 3E0P7VZ Introduction of Hormone into Female Reproductive, Via Natural or Artificial Opening (ICD-10-PCS; 2022-11-02)
PROC: 0KQM0ZZ Repair Perineum Muscle, Open Approach (ICD-10-PCS; principal; 2022-11-03)
PROC: 10E0XZZ Delivery of Products of Conception, External Approach (ICD-10-PCS; 2022-11-03)
PROC: 3E033VJ Introduction of Other Hormone into Peripheral Vein, Percutaneous Approach (ICD-10-PCS; 2022-11-03)
DX: O70.1 Second degree perineal laceration during delivery (principal); Z37.0 Single live birth; O14.94 Unspecified pre-eclampsia, complicating childbirth; Z3A.38 38 weeks gestation of pregnancy; O24.424 Gestational diabetes mellitus in childbirth, insulin controlled; Z98.890 Other specified postprocedural states; O69.81X0 Labor and delivery complicated by cord around neck, without compression, not applicable or unspecified
CPT/HCPCS: 80053; 82570; 84156; 85025; 86850; 86900; 86901; 96374; A9270; J1815; J7120

== ENCOUNTER 2022-12-15 08:00 | Outpatient (CLI) | payer OTHER ==
[2022-12-15 20:01] LABS: BACTERIAL VAGINOSIS DNA NEGATIVE (NEGATIVE); CANDIDA GLABRATA DNA NEGATIVE (NEGATIVE); CANDIDA GROUP DNA NEGATIVE (NEGATIVE); CANDIDA KRUSEI DNA NEGATIVE (NEGATIVE); TRICHOMONAS VAGINALIS DNA NEGATIVE (NEGATIVE)
== END 2022-12-15 23:59 | disposition home or self-care (01) ==
LOC: LAB.WC 08:00
PROVIDERS: ATTEND Nurse Practitioner
DX: N89.8 Other specified noninflammatory disorders of vagina (principal)
CPT/HCPCS: 81514